=== PATIENT | male | born 1990 | race Caucasian/White ===

== ENCOUNTER 2019-12-15 04:26 | Emergency (ER) | payer OTHER ==
[~2019-12-15] VITALS: Ht 182.9 cm; Wt 228.0 kg
[2019-12-15 04:33] VITALS: BP 167/83
--- NOTE | 2019-12-15 04:49 | NUR ---
PT TO ED WITH C/O LEFT ANKLE INJURY. REPORTS HE IS AN [employer] AND AROUND 0130 HE WAS WALKING DOWN A DRIVEWAY AFTER A DELIVERY AND ROLLED LEFT ANKLE. ABLE TO BEAR WEIGHT BUT PAINFUL. REPORTS TAKING 800MG IBUPROFEN AT 0300. NO PREVIOUS INJURY.
--- NOTE | 2019-12-15 05:00 | NUR ---
XRAY TO BEDSIDE. ICE APPLIED TO LEFT ANKLE.
== END 2019-12-15 06:43 | disposition home or self-care (01) ==
LOC: ED 05:20
DX: S93.492A Sprain of other ligament of left ankle, initial encounter (principal); S93.622A Sprain of tarsometatarsal ligament of left foot, initial encounter; I10 Essential (primary) hypertension; E66.9 Obesity, unspecified; Z68.44 Body mass index [BMI] 60.0-69.9, adult; W01.0XXA Fall on same level from slipping, tripping and stumbling without subsequent striking against object, initial encounter; Y93.89 Activity, other specified; Y92.89 Other specified places as the place of occurrence of the external cause; Y99.8 Other external cause status
CPT/HCPCS: 99284

== ENCOUNTER 2020-08-02 15:44 | Emergency (ER) | payer SELFPAY ==
[~2020-08-02] VITALS: Ht 182.9 cm; Wt 230.5 kg
[2020-08-02 16:01] VITALS: BP 206/97
--- NOTE | 2020-08-02 16:30 | NUR ---
LEFT FOOT PAIN. CORRECTION TO PREVIOUS NURSE NOTE
--- NOTE | 2020-08-02 16:30 | NUR ---
PAIN IN REGION OF RIGHT FOOT AND ANKLE FOR 4 DAYS. XRAY COMPLETED AND NIB FINISHER SETTING
[2020-08-02] MEDS ORDERED: KETOROLAC 30 MG/1 ML IM ONE (17:30)
[2020-08-02] MEDS ORDERED: KETOROLAC 30 MG/1 ML ONE (17:38)
--- NOTE | 2020-08-02 17:42 | NUR ---
PT MEDICATED NOTED ON MAR FOR FOOT AND LOWER EXTREMITY PAIN
--- NOTE | 2020-08-02 18:45 | NUR ---
MINIMAL IMPROVEMENT IN PAIN SINCE MEDICATED. ENCOURAGED PT TO USE ANTI INFLAMMITORY AND TYLENOL DIRECTED ON BOTTLES FOR PAIN. PT CANNOT BEAR WEIGHT ON FOOT BECAUSE OF PAIN AND TO DISCHARGE WINDOW VIA W/C
== END 2020-08-02 19:06 | disposition home or self-care (01) ==
LOC: ED 17:58
DX: M25.572 Pain in left ankle and joints of left foot (principal); M79.672 Pain in left foot; M79.662 Pain in left lower leg; R60.0 Localized edema; I10 Essential (primary) hypertension; E03.9 Hypothyroidism, unspecified; E66.9 Obesity, unspecified; F17.200 Nicotine dependence, unspecified, uncomplicated
CPT/HCPCS: 73610; 73630; 93971; 96372; 99284; J1885